=== PATIENT | male | born 1980 | race Two or more races ===

== ENCOUNTER 2018-03-13 01:15 | Emergency (ER) | payer OTHER ==
[~2018-03-13] VITALS: Ht 172.7 cm; Wt 95.3 kg
[~2018-03-13 01:15] MED LIST: HYDR-4683 PO; IBUP800T24 PO
[2018-03-13 01:30] VITALS: BP 112/64
== END 2018-03-13 02:38 | disposition left against medical advice (07) ==
LOC: ER 01:15
DX: M79.89 Other specified soft tissue disorders (principal); Z53.21 Procedure and treatment not carried out due to patient leaving prior to being seen by health care provider

== ENCOUNTER 2020-02-13 00:16 | Emergency (ER) | payer OTHER ==
[~2020-02-13] VITALS: Ht 182.9 cm; Wt 95.3 kg
[~2020-02-13 00:16] MED LIST changes: -HYDR-4683 PO; +HYDR-4833 PO
[2020-02-13 01:18] VITALS: BP 133/76
== END 2020-02-13 07:51 | disposition left against medical advice (07) ==
LOC: EDBD 00:16 → ER 00:16
DX: R51 Headache (principal); R11.2 Nausea with vomiting, unspecified; F19.10 Other psychoactive substance abuse, uncomplicated; F10.129 Alcohol abuse with intoxication, unspecified; Z20.828 Contact with and (suspected) exposure to other viral communicable diseases; Z79.899 Other long term (current) drug therapy; Z88.0 Allergy status to penicillin; Y90.9 Presence of alcohol in blood, level not specified